=== PATIENT | female | born 1965 | race Caucasian/White ===

== ENCOUNTER 2022-10-30 13:31 | Outpatient (CLI) | payer BC | END 2022-10-30 13:32 | disposition home or self-care (01) | LOC: CSHMAMMO 13:31 | PROVIDERS: ATTEND Nurse Practitioner Family | DX: Z12.31 Encounter for screening mammogram for malignant neoplasm of breast (principal); R92.8 Other abnormal and inconclusive findings on diagnostic imaging of breast | CPT/HCPCS: 77063; 77067 ==